=== PATIENT | female | born 1960 | race Caucasian/White ===

== ENCOUNTER → 2022-01-18 | Outpatient (CLI) | payer OTHER | LOC: KOH-I 12:49 | DX: M51.16 Intervertebral disc disorders with radiculopathy, lumbar region (principal); M48.061 Spinal stenosis, lumbar region without neurogenic claudication; M48.07 Spinal stenosis, lumbosacral region | CPT/HCPCS: 72148 ==

== ENCOUNTER 2022-06-14 20:28 | Emergency (ER) | payer OTHER ==
[~2022-06-14] VITALS: Ht 152.4 cm; Wt 45.4 kg
[2022-06-14 21:31] LABS: HEMOGLOBIN 10.5 gm/dl (12.3-15.3); RED BLOOD COUNT 3.45 M/UL (4.00-5.10); WHITE BLOOD COUNT 7.8 K/UL (4.5-11.0)
[2022-06-14 22:04] LABS: BUN/CREATININE RATIO 35 (0-10)
[2022-06-15 02:02] LABS: HEMOGLOBIN 11.5 gm/dl (12.3-15.3); RED BLOOD COUNT 3.77 M/UL (4.00-5.10); WHITE BLOOD COUNT 9.7 K/UL (4.5-11.0)
== END 2022-06-15 04:08 | disposition short-term general hospital (02) ==
LOC: ER1 20:28
PROVIDERS: Emergency Medicine; Physician Assistant
DX: K92.2 Gastrointestinal hemorrhage, unspecified (principal); D64.9 Anemia, unspecified; R19.7 Diarrhea, unspecified; F17.200 Nicotine dependence, unspecified, uncomplicated; Z90.89 Acquired absence of other organs; Z88.0 Allergy status to penicillin; Z79.899 Other long term (current) drug therapy; Z51.81 Encounter for therapeutic drug level monitoring
CPT/HCPCS: 80053; 81001; 82272; 83690; 85025; 85610; 85730; 96361; 96374; 99285; C9113